=== PATIENT | male | born 1945 | race Caucasian/White ===

== ENCOUNTER 2018-03-11 09:17 | Day surgery (SDC) | payer OTHER ==
[~2018-03-11] VITALS: Ht 175.3 cm; Wt 73.9 kg
[~2018-03-11 09:17] MED LIST: ADULT LOW DOSE81 MG PO; ALPHA LIPOIC A300 MG PO; CHONDROITIN SU250 MG PO; FLOMAX0.4 MG PO; GARLIC OIL1000 MG PO; GLUCOSAMINE H1500 MG PO; LOVASTATIN40 MG PO; LUTEIN20 M1 PO; MSM1000 MG PO; SERTRALINE HCL25 MG PO; VITAMIN C500 M5 PO
--- NOTE | 2018-03-11 11:07 | NUR ---
03/11/18 1107 Maude Morgan 1103 PATIENT ARRIVES TO PACU ASLEEP, DOES NOT RESPOND TO VERBAL STIMULI. RESP EVEN AND UNLABORED, NC AT 3 LITERS ON ARRIVAL, TURNED OFF, ROOM AIR SATS 97%.
--- NOTE | 2018-03-12 09:07 | OR ---
[facility] [address], [place] [address] Signed DATE OF OPERATION: 03/11/2018 SURGEON: Agustina Durand MD COLONOSCOPY REPORT PREOPERATIVE DIAGNOSES: 1. Screening. 2. Personal history of hyperplastic colonic polyps. 3. Anal skin tags. POSTOPERATIVE DIAGNOSIS: Minimal internal hemorrhoids. PROCEDURE PERFORMED: Colonoscopy without biopsy. ESTIMATED BLOOD LOSS: None. INDICATIONS: Trevon is a 72-year-old gentleman, who returns for his followup screening colonoscopy. He had a tiny hyperplastic polyp at the left colon 10 years ago. He also has some anal skin tags in the anterior posterior midline, in the meantime he said he has no lower GI complaints. There is no family history of colon cancer or polyps. In the office, I gave him a pamphlet on colonoscopy. We looked at that together along with the risks including, but not limited to gas bloating, crampy abdominal pain, bleeding, perforation, requiring surgery, and missed diagnosis. He also understands the need for IV conscious sedation. He had expressed understanding and wished to proceed. PROCEDURE NOTE: Trevon was taken into our endoscopy suite and placed in the left lateral decubitus position. He was given 6 mg of Versed and 100 mcg of fentanyl to cover the case. A digital rectal exam was performed and this was unremarkable. The adult colonoscope was introduced and advanced all the around into the cecum under direct visualization of the camera. He had several areas of particulate liquid stool matter, much of that was irrigated and suctioned out. The scope was then slowly withdrawn. We could easily see the cecum and ileocecal valve. We found no pathology throughout the entire colon or rectum. Upon retroflexion of the scope, he has some very minimal internal hemorrhoid tissue. After this, the gas was suctioned out. The colonoscope was removed. Trevon Electronically Signed By: AGUSTINA DURAND MD 03/12/18 0907 PATIENT NAME: TREVON PRECIADO OPERATIVE REPORT DATE OF : 49 REPORT #: [id number] PHYSICIAN: AGUSTINA DURAND MD PCP: JABIER TANG MD REPORT IS CONFIDENTIAL AND NOT TO BE RELEASED WITHOUT AUTHORIZATION [facility] [address] [place] [id number] Signed tolerated the procedure quite well. RECOMMENDATIONS: Trevon is welcome to follow up in 10 years for repeat screening colonoscopy, so long his health holds up. MD RASHEEDA Vora/JUSTINL /[id number] cc: MD Agustina Baker MD Copies: JABIER TANG MD, ANDREW L MD ~ Electronically Signed By: AGUSTINA DURAND MD 03/12/18 0907 PATIENT NAME: TREVON PRECIADO OPERATIVE REPORT DATE OF : 49 REPORT #: [id number] PHYSICIAN: AGUSTINA DURAND MD PCP: JABIER TANG MD REPORT IS CONFIDENTIAL AND NOT TO BE RELEASED WITHOUT AUTHORIZATION
== END 2018-03-11 11:33 | disposition home or self-care (01) ==
LOC: OPS 09:17 → DS 09:17 → OPS 10:30 → DS 10:30 → OPS 11:33
PROVIDERS: Colon & Rectal Surgery
PROC: 0DJD8ZZ Inspection of Lower Intestinal Tract, Via Natural or Artificial Opening Endoscopic (ICD-10-PCS; principal; 2018-03-11 10:30)
DX: Z12.11 Encounter for screening for malignant neoplasm of colon (principal); K64.8 Other hemorrhoids; Z86.010 Personal history of colon polyps; E78.5 Hyperlipidemia, unspecified; M19.90 Unspecified osteoarthritis, unspecified site; Z79.82 Long term (current) use of aspirin; Z79.899 Other long term (current) drug therapy; Z85.828 Personal history of other malignant neoplasm of skin
CPT/HCPCS: 99153; G0500; J2250; J3010; J7120